=== PATIENT | male | born 1965 | race Caucasian/White ===

== ENCOUNTER 2018-08-22 15:20 | Outpatient (CLI) | payer OTHER | END 2018-08-22 15:21 | disposition critical access hospital (66) | LOC: EMS 15:20 | PROVIDERS: ATTEND Surgery | DX: R07.9 Chest pain, unspecified (principal); M54.2 Cervicalgia; V49.60XA Unspecified car occupant injured in collision with unspecified motor vehicles in traffic accident, initial encounter; Y92.413 State road as the place of occurrence of the external cause | CPT/HCPCS: A0425; A0429 ==

== ENCOUNTER 2018-08-22 15:47 | Emergency (ER) | payer OTHER ==
[2018-08-22] MEDS ORDERED: IOVERSOL 320 100 ML VIAL IVP ONE ×3 (15:48→18:29)
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
[2018-08-22 16:24] LABS: BASOPHILS # (AUTO) 0.1 10^3/uL (0.0-0.1); BASOPHILS % (AUTO) 1.2 %; EOSINOPHILS # (AUTO) 0.3 10^3/uL (0.0-0.7); EOSINOPHILS % (AUTO) 5.2 %; HGB - HEMOGLOBIN 15.1 g/dL (14.0-18.0); LYMPHOCYTES # (AUTO) 2.2 10^3/uL (1.5-3.5); LYMPHOCYTES % (AUTO) 33.8 %; MEAN CORPUSCULAR HEMOGLOBIN 29.7 pg (27.0-31.0); MEAN CORPUSCULAR HGB CONC 34.1 g/dL (32.0-36.0); MEAN CORPUSCULAR VOLUME 87.2 fL (80.0-94.0); MEAN PLATELET VOLUME 8.7 fL (7.4-11.4); MONOCYTES # (AUTO) 0.4 10^3/uL (0.0-1.0); MONOCYTES % (AUTO) 6.4 %; NEUTROPHILS # (AUTO) 3.5 10^3/uL (1.5-6.6); NEUTROPHILS % (AUTO) 52.9 %; PLT - PLATELET COUNT 201 10^3/uL (130-450); RED BLOOD COUNT 5.08 10^6/uL (4.70-6.10); RED CELL DISTRIBUTION WIDTH 12.3 % (12.0-15.0); WHITE BLOOD COUNT 6.6 x10^3/uL (4.8-10.8)
[2018-08-22 16:35] LABS: INR 1.1 (0.8-1.2); PT - PROTHROMBIN TIME 12.6 secs (9.9-12.6)
[2018-08-22 16:37] LABS: ALBUMIN 4.1 g/dL (3.2-5.5); ALBUMIN/GLOBULIN RATIO 1.2 (1.0-2.2); ALKALINE PHOSPHATASE 75 IU/L (42-121); ALT ALANINE AMINOTRANSFERASE 19 IU/L (10-60); AST ASPARTATE AMINOTRANSFERASE 20 IU/L (10-42); BILIRUBIN,TOTAL 1.1 mg/dL (0.2-1.0); BUN - BLOOD UREA NITROGEN 18 mg/dL (6-20); CALCIUM 9.2 mg/dL (8.5-10.3); CARBON DIOXIDE - CO2 28 mmol/L (21-32); CHLORIDE 102 mmol/L (101-111); CREATININE 0.9 mg/dL (0.6-1.2); GFR - MDRD 88 (>89); GLUCOSE 119 mg/dL (70-100); LIPASE 37 U/L (22-51); SODIUM 139 mmol/L (135-145); TOTAL PROTEIN 7.4 g/dL (6.7-8.2)
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
[2018-08-22] MEDS ORDERED: ONDANSETRON 4 MG/2 ML VIAL IVP STA (18:13)
[2018-08-22] MEDS ORDERED: ONDANSETRON 4 MG/2 ML VIAL ONE (18:21)
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
[2018-08-22] MEDS ORDERED: MORPHINE 2 MG/ML CARPUJECT IVP STA ×2 (18:28→22:06)
[2018-08-22] MEDS ORDERED: MORPHINE 2 MG/ML CARPUJECT ONE (20:08)
[2018-08-22 23:08] VITALS: BP 133/76
== END 2018-08-22 23:36 | disposition short-term general hospital (02) ==
LOC: EDUNIT# → ED 15:47
DX: S22.20XA Unspecified fracture of sternum, initial encounter for closed fracture (principal); S26.91XA Contusion of heart, unspecified with or without hemopericardium, initial encounter; V89.2XXA Person injured in unspecified motor-vehicle accident, traffic, initial encounter
CPT/HCPCS: 36415; 70450; 71045; 71260; 72125; 74177; 80053; 80320; 83690; 84484; 85025; 85610; 86850; 86900; 86901; 93005; 96374; 96375; 96376; 99284; 99285; Q9967

== ENCOUNTER 2020-02-02 19:08 | Outpatient (CLI) | payer OTHER ==
--- NOTE | 2020-02-04 16:38 | XRAY Report ---
PROCEDURE: Bone Length Study INDICATIONS: Leg Length Inequality TECHNIQUE: A single frontal standing view of both lower extremities acquired, with measuring ruler s ituated between the legs. COMPARISON: None FINDINGS: Leg length was unable to be determined secondary to technical factors related to the ruler. There is minimal degenerative narrowing of the hip joints bilaterally. The knees demonstrate bilatera l mild to moderate medial compartment narrowing consistent with degenerative change. There are no vis ualized fractures or dislocations. No suspicious osseous lesions. IMPRESSION: 1. Leg length unable to be evaluated as above. 2. Generative changes within the hips and knees as above. Reviewed by: Jacinta Barker MD on 02/04/2020 4:36 PM PST Approved by: Jacinta Barker MD on 02/04/2020 4:36 PM PST Station ID: [id number]
== END 2020-02-02 19:09 | disposition home or self-care (01) ==
LOC: DI 19:08
PROVIDERS: ATTEND Family Medicine
DX: M21.769 Unequal limb length (acquired), unspecified tibia and fibula (principal)

== ENCOUNTER 2022-02-13 09:36 | Outpatient (CLI) | payer OTHER ==
[2022-02-13 12:45] LABS: ALBUMIN/GLOBULIN RATIO 1.1 (1.0-2.2); BILIRUBIN,TOTAL 0.8 mg/dL (0.2-1.0); CALCIUM 8.8 mg/dL (8.5-10.3); CREATININE 0.9 mg/dL (0.6-1.2); POTASSIUM 3.7 mmol/L (3.5-5.0); TOTAL PROTEIN 7.6 g/dL (6.7-8.2)
== END 2022-02-13 09:37 | disposition home or self-care (01) ==
LOC: LAB.N 09:36
PROVIDERS: ATTEND Physician Assistant
DX: B35.1 Tinea unguium (principal)
CPT/HCPCS: 36415; 80053

== ENCOUNTER 2022-08-14 19:24 | Outpatient (CLI) | payer OTHER ==
--- NOTE | 2022-08-15 11:36 | XRAY Report ---
PROCEDURE: Shoulder 3 View RT INDICATIONS: PAIN IN RIGHT SHOULDER TECHNIQUE: 3 views of the shoulder were acquired. COMPARISON: None. FINDINGS: Bones: No fractures or dislocations. No suspicious bony lesions. Mild osteoarthritic changes in ac romioclavicular and glenohumeral joint. Visualized ribs appear intact. Soft tissues: No suspicious soft tissue calcifications. IMPRESSION: Moderate osteoarthritis. Reviewed by: Maurilio Pulido MD on 08/15/2022 11:35 AM PDT Approved by: Maurilio Pulido MD on 08/15/2022 11:35 AM PDT Station ID: [id number]
== END 2022-08-14 19:25 | disposition home or self-care (01) ==
LOC: DI 19:24
PROVIDERS: ATTEND Registered Nurse
DX: M19.011 Primary osteoarthritis, right shoulder (principal)

== ENCOUNTER 2022-08-26 06:52 | Outpatient (CLI) | payer OTHER ==
--- NOTE | 2022-08-26 14:10 | MRI Report ---
PROCEDURE: SHOULDER WO - RT INDICATIONS: RIGHT SHOULDER PAIN TECHNIQUE: Noncontrast oblique coronal T2 fast spin echo with fat saturation, oblique sagittal T1 spin echo and T2 fast spin echo with fat saturation, axial T1 spin echo and T2 fast spin echo with fat saturation t hrough the shoulder. COMPARISON: X-ray right shoulder, 08/14/2022. FINDINGS: Image quality: Excellent. Rotator cuff: There is high-grade partial thickness tear of the distal supraspinatus tendon involving articular surface. No supraspinous muscle atrophy. High-grade partial-thickness tear is also seen involving the footprint of the subscapularis tendon. T here may be a perforation of the subscapular tendon. No subscapularis muscle atrophy. There is mild infraspinatus tendinosis without high-grade tendon tear. No infraspinous cuff muscle at rophy. The teres minor tendon is intact. Bones and bursae: No bone marrow contusions or fractures. There is moderate acromioclavicular and mi ld glenohumeral joint degeneration. The acromion demonstrates conventional anatomy, without an os ac romiale. There is a small subcoracoid bursal fluid suggesting mild bursitis. Capsule and soft tissues: There is a SLAP lesion in the superior labrum at 12:00. A couple small para labral cysts are noted adjacent to the superior labrum. In the absence of intra-articular contrast, t he glenohumeral ligaments appear intact. There is mild partial tear and tendinosis of the long head o f the biceps tendon which demonstrates normal location. The rotator interval appears normal, without fibrosis. The coracohumeral ligament is normal in thickness. Note is made of small axillary lymph nodes, likely reactive. IMPRESSION: 1. High-grade partial-thickness tear of the supraspinatus tendon. 2. High-grade partial-thickness tear of the subscapularis tendon. 3. Mild infraspinatus tendinosis. 4. SLAP lesion of the superior labrum and a couple of small paralabral cysts. 5. Mild subcoracoid bursitis. 6. Moderate acromioclavicular and mild glenohumeral joint degeneration. Reviewed by: Maurilio Pulido MD on 08/26/2022 2:09 PM PDT Approved by: Maurilio Pulido MD on 08/26/2022 2:09 PM PDT Station ID: [id number]
== END 2022-08-26 06:53 | disposition home or self-care (01) ==
LOC: DI 06:52
PROVIDERS: ATTEND Registered Nurse
DX: M75.111 Incomplete rotator cuff tear or rupture of right shoulder, not specified as traumatic (principal); M75.81 Other shoulder lesions, right shoulder; S43.431A Superior glenoid labrum lesion of right shoulder, initial encounter; M75.51 Bursitis of right shoulder; M19.011 Primary osteoarthritis, right shoulder